=== PATIENT | male | born 1960 | race Caucasian/White ===

== ENCOUNTER → 2018-07-09 | Outpatient (CLI) | payer OTHER ==
--- NOTE | 2018-07-10 07:30 | CT ---
EXAMINATION TYPE: CT sinus wo con DATE OF EXAM: 07/09/2018 COMPARISON: NONE HISTORY: chronic sinusitis per order. Facial pain and headaches for [address] DLP: 613 mGycm. Automated Exposure Control for Dose Reduction was Utilized. TECHNIQUE: CT scan of the sinuses is performed without contrast, axial images are obtained, coronal r eformatted images are also reviewed. FINDINGS: Moderate mucosal thickening involving left maxillary sinus is present with suspected small dependent air-fluid level. Right maxillary sinus shows moderate mucosal thickening inferiorly. Dominant right sphenoid sinus shows mild to moderate anterior mucosal thickening. There is nearly com pletely opacified left sphenoid sinus. There is near complete opacification of ethmoid sinuses bilate rally more prominent anteriorly. Mild mucosal thickening inferiorly posteriorly right frontal sinus w ith patchy fluid is present . There is more patchy fluid signal posterior inferior left frontal sinus with mild mucosal thickening. The ostiomeatal complex is blocked bilaterally on the coronal images. Visualized portion of mastoid air cells show no abnormal opacification. The globes are intact bilate rally. Visualized portion of brain parenchyma is unremarkable. IMPRESSION: Acute on chronic paranasal sinus disease as detailed above with blockage of bilateral ost iomeatal complexes.
== END ==
LOC: RADCTMAIN 16:08
PROVIDERS: ATTEND Otolaryngology
DX: J01.80 Other acute sinusitis (principal)
CPT/HCPCS: 70486

== ENCOUNTER 2018-08-14 07:45 | Day surgery (SDC) | payer OTHER ==
[2018-08-12 15:27] VITALS: BMI 31.0
[~2018-08-14 07:45] MED LIST: DEXAMETHASONE SOD PHOSPHATE 10 MG/ML 1 ML VIAL IV ONE; DEXAMETHASONE SOD PHOSPHATE 4 MG/ML 1 ML VIAL IV ONE; FAMOTIDINE 20 MG/2 ML VIAL IV ONE; HYDROmorphone 0.5 MG/0.5 ML SYRINGE IVP PRN; LACTATED RINGERS 1,000 ML IV SCH; LIDOCAINE 1% 20 ML VIAL (10MG/ML) FOR IV START INTRADERMA PRN; MIDAZOLAM (PF) 2 MG/2 ML VIAL IV PRN; ONDANSETRON 4 MG/2 ML VIAL IVP ONE; OXYMETAZOLINE 0.05% NASL SPRAY 1 SPRAY BOTTLE NASAL ONE; ceFAZolin 1,000 MG in DEXTROSE/WATER 1 50ML.BAG IV ONE; fentaNYL (PF) 50 MCG/ML 2 ML AMP IV PRN
[2018-08-14] MEDS ORDERED: SCOPOLAMINE 1.5MG/72HR PATCH TRANSDERM ONE (10:13)
[2018-08-14] MEDS ORDERED: DEXAMETHASONE SOD PHOS (MDV) 100 MG/10 ML VIAL ONE (10:25)
[2018-08-14] MEDS ORDERED: LIDOCAINE 1% INJ 10MG/ML (20 ML MDV) ONE (10:25)
[2018-08-14] MEDS ORDERED: MIDAZOLAM 2 MG/2 ML VIAL ONE (10:25)
[2018-08-14] MEDS ORDERED: SUCCINYLCHOLINE CHLORIDE 100 MG/5 ML SYR IV ONE (10:25)
[2018-08-14] MEDS ORDERED: PROPOFOL 10 MG/ML 20 ML VIAL IV ONE (10:25)
[2018-08-14] MEDS ORDERED: fentaNYL (PF) 50 MCG/ML 2 ML AMP ONE (10:25)
[2018-08-14] MEDS ORDERED: LIDOCAINE 1%-EPI 1:100,000 20 ML VIAL SQ ONE (10:59)
[2018-08-14] MEDS ORDERED: FLUORESCEIN STRIPS 1 MG STRIP MISCELLANE ONE (11:00)
[2018-08-14] MEDS ORDERED: BUPIVACAIN-EPI 0.5%-1:200,000 30 ML VIAL SQ ONE (11:00)
[2018-08-14] MEDS ORDERED: EPINEPHrine 1 MG/ML (MDV) 30 ML VIAL TOPICAL ONE ×2 (11:00)
[2018-08-14 12:22] VITALS: TEMP 97.2
--- NOTE | 2018-08-14 12:35 | P.OP ---
Date of Procedure: 08/14/18 Preoperative Diagnosis: Chronic Pansinusitis with polyposis Deviated nasal septum Hypertrophy of inferior turbinate Anesthesia: JENIFERA Surgeon: Geoff Dove Estimated Blood Loss (ml): 20 Pathology: other (sinonasal) Condition: stable Disposition: PACU Indications for Procedure: This patient presented to the office with constant sinus symptoms for many years. He has total anosmia congestion discolored drainage etc. etc. Antibiotics do not help nasal steroids do not help he has failed all medical therapies. CAT scan shows chronic pansinusitis with sinonasal polyposis. All risks, benefits, and alternative therapies regarding this procedure were discussed. Consent was obtained and all questions were answered. Operative Findings: Massive sinonasal polyposis with a deviated nasal septum and large obstructive inferior turbinates Description of Procedure: This patient was taken to the operative room and placed in the supine position. A general inhalation anesthetic was administered to the patient by the department of anesthesia with a functioning IV line in place. The patient was monitored throughout the entire case by the department of anesthesia. The eyes were taped shut for protection. The patient was placed in a slight reverse Trendelenburg position. The patient had previously utilize Afrin nasal spray preoperatively. The nose was evaluated and the septum lateral nasal wall and inferior turbinates were injected with lidocaine 1% with epinephrine 1 100,000 bilaterally. Approximately 10 minutes were allowed wait for full vasoconstrictive effects to take place. At this point a caudal incision was made over the caudal portion of the left septum down to the mucoperichondrium. A mucoperichondrial flap was elevated on the left side and dissection was carried with use of tunnels posteriorly. We then made a crossover incision through the cartilage to the contralateral side and for the mucoperichondrial flap development was performed to the extent of visualization on the contralateral side. After the cartilage was freed with use of several crosshatching incisions and removal of some redundant strips of septal cartilage, the septum was straightened and placed back in the midline. The septum was sutured fixated to the ovarian groove. Excellent straightening occurred and the septum was visibly straight. Incision was closed with a 40 rapid Vicryl. We utilized a running nonlocking fashion for closure of the incision. A quilting stitch was used to reapproximate the septal flaps with use of a 40 rapid Vicryl. We then entered the nose with a 0 and 30 Barth henrik endoscope. Previous to this we did inject the lateral nasal wall and middle turbinate and uncinate process with lidocaine 1% with epinephrine 1 100,000. Approximately 10 minutes were allowed wait for full vasoconstrictive effects to take place. Intranasal polyps were noted. They were noted bilaterally. The intranasal polyps were removed with use of a microdebrider. With use of a microdebrider and a pediatric backbiter, we took down the uncinate process bilaterally. We then opened the maxillary sinuses bilaterally. We utilized a microdebrider for this and entered the maxillary sinuses and removed diseased tissue and polypoid tissue. This was done bilaterally. After the maxillary sinuses were opened and the diseased tissue and polyps were removed we entered the ethmoid bulla and with use of a microdebrider and up-biting carolina and Frederick, we remove the anterior septations and remove diseased tissue from the anterior ethmoids with direct visualization. We then followed the fovea frontalis through the basal lamella and into the posterior ethmoid air cells and did a total ethmoidectomy with removal of polypoid material. Once the ethmoids cells were all taken down we then entered the sphenoid sinus medially and inferiorly underneath the inferior attachment of the superior turbinate. The sphenoid sinus was opened entered and diseased tissue and polyps were removed bilaterally. This was done with a microdebrider and Blakesosvaldo. We then entered the frontal sinuses with a giraffe and up-biting Blameenaley entered on the agar nasi cells. We open the frontal sinuses and removed sinus tissue and polypoid tissue that was diseased. We explored the frontal sinuses bilaterally. To summarize all sinuses were open all sinuses were explored and we remove diseased tissue and polyps from the sphenoid maxillary and frontal sinuses. Polyps were removed from the nose. Ethmoid sinuses were opened totally. Xerogel/ Propel/Nasal pore was inserted and minimal bleeding was encountered. We reinspected the skull base there is no signs of any orbital penetration or signs of any intracranial penetration. The sugical site was reinspected after the nasal pore was placed and no bleeding was seen. Attention was then paid to the inferior turbinates. The bilateral inferior turbinates were hypertrophic and obstructive. We entered the anterior portion of the inferior turbinates with use of a microdebrider. We remove bone and submucosal elements with use of a microdebrider bilaterally. The inferior turbinates underwent a submucosal resection with removal of submucosal tissue and bone. We obtained a much better and normal in size for breathing. The inferior turbinates were then outfractured and compressed with a Compendium nasal elevator. Excellent airway was obtained and was symmetric bilaterally. No bleeding was encountered. Intranasal splints were inserted and fixated at the end of the case. We utilized Marion nasal splints. There will be removed and the patient returns to the office.
[2018-08-14] MEDS ORDERED: ACETAMINOPHEN TAB 500 MG TAB PO ONE (13:44)
[2018-08-14 14:22] VITALS: BP 134/84; PULSE 57; RESP 20
== END 2018-08-14 15:05 | disposition home or self-care (01) ==
LOC: OR 07:45
PROVIDERS: ATTEND Otolaryngology
DX: J32.4 Chronic pansinusitis (principal); J34.2 Deviated nasal septum; J34.3 Hypertrophy of nasal turbinates; J33.8 Other polyp of sinus; R43.0 Anosmia; K21.9 Gastro-esophageal reflux disease without esophagitis; Z79.899 Other long term (current) drug therapy; Z91.09 Other allergy status, other than to drugs and biological substances
CPT/HCPCS: 88305; 88300; 30520; 30140; 31267; 31253; 31259; C2625 ×2; J0171; J2250; J1100 ×2; J2405; J2001; J3010; J0330; J2704

== ENCOUNTER 2018-08-15 10:23 | Emergency (ER) | payer OTHER ==
[2018-08-15 10:30] VITALS: TEMP 98
[2018-08-15 11:06] VITALS: RESP 16
[2018-08-15] MEDS ORDERED: LORazepam 2 MG/ML INJ IV STA (11:08)
--- NOTE | 2018-08-15 11:14 | ED ---
General Adult HPI - General Chief complaint: Recheck/Abnormal Lab/Rx Stated complaint: JAYE, post surgical Time Seen by Provider: 08/15/18 10:30 Source: patient, RN notes reviewed Mode of arrival: ambulatory Limitations: no limitations - History of Present Illness Initial comments: This a 57-year-old male who presents emergency Department complaining of tingling in his fingers and feet. Patient states he had surgery on his sinuses yesterday and he had a difficult time with his breathing he states he feels as though he has to sit up at all times and is quite anxious about his breathing though he is able to get a full breath. Patient denies any headache patient denies any actual numbness or weakness. Patient states she is a tingling sensation that occasionally occurs in both hands and both feet. Patient denies any lightheadedness or dizziness. Patient denies any chest pain or palpitations. Patient denies any abdominal pain. Patient denies nausea or vomiting. - Related Data Home Medications Medication Instructions Recorded Confirmed Fish Oil/Dha/Epa [Fish Oil 1,200 1 cap PO DAILY 08/12/18 08/15/18 mg Fish Oil] Omeprazole [PriLOSEC] 20 mg PO Q48H 08/12/18 08/15/18 Acetaminophen [Tylenol] 1,000 mg PO Q4-6H PRN 08/15/18 08/15/18 Amoxicillin/Potassium Clav 1 tab PO Q12HR 08/15/18 08/15/18 [Augmentin 875-125 Tablet] predniSONE See Taper PO DIRECTED 08/15/18 08/15/18 Previous Rx's Medication Instructions Recorded Meloxicam [Mobic] 15 mg PO DAILY #10 tab 08/14/18 Allergies Allergy/AdvReac Type Severity Reaction Status Date / Time bee stings Allergy Anaphylaxis Uncoded 08/15/18 10:30 Review of Systems ROS Statement: Those systems with pertinent positive or pertinent negative responses have been documented in the HPI. ROS Other: All systems not noted in ROS Statement are negative. Past Medical History Past Medical History: GERD/Reflux Additional Past Medical History / Comment(s): deviated septum,sinus polyps History of Any Multi-Drug Resistant Organisms: None Reported Past Surgical History: Back Surgery Additional Past Surgical History / Comment(s): ORIF rt ankle-later removed Past Anesthesia/Blood Transfusion Reactions: Postoperative Nausea & Vomiting ( PONV) Past Psychological History: No Psychological Hx Reported Smoking Status: Never smoker - Past Family History Mother Additional Family Medical History / Comment(s): pulmonary fibrosis General Exam - General Exam Comments Initial Comments: GENERAL: Patient is well-developed and well-nourished. Patient is nontoxic and well- hydrated and is in mild distress and moderate anxiety ENT: Neck is soft and supple. No significant lymphadenopathy is noted. Oropharynx is clear. Moist mucous membranes. Neck has full range of motion without eliciting any pain. Patient has packing in his nose but I did not explore that area. EYES: The sclera were anicteric and conjunctiva were pink and moist. Extraocular movements were intact and pupils were equal round and reactive to light. Eyelids were unremarkable. PULMONARY: Unlabored respirations. Good breath sounds bilaterally. No audible rales rhonchi or wheezing was noted. CARDIOVASCULAR: There is a regular rate and rhythm without any murmurs gallops or rubs. SKIN: Skin is clear with no lesions or rashes and otherwise unremarkable. NEUROLOGIC: Patient is alert and oriented x3. Cranial nerves II through XII are grossly intact. Motor and sensory are also intact. Normal speech, volume and content. Symmetrical smile. MUSCULOSKELETAL: Normal extremities with adequate strength and full range of motion. No lower extremity swelling or edema. No calf tenderness. LYMPHATICS: No significant lymphadenopathy is noted PSYCHIATRIC: Moderate anxiety Limitations: no limitations Course Vital Signs 08/15/18 08/15/18 08/15/18 10:27 11:03 11:30 Temperature 98 F Pulse Rate 69 Respiratory 22 16 Rate Blood Pressure 172/97 143/91 O2 Sat by Pulse 99 96 Oximetry Medical Decision Making - Medical Decision Making EKG shows normal sinus rhythm at 68 bpm MA interval 160 QRS is 88 QT interval 392 QTC is 416. Patient's EKG shows no ST segment elevation or depression. I spoke with Dr. Dove he thought that the patient may be having some side effects to the steroids or possibly some anxiety. I went back and reevaluated the patient after he had Ativan and he was feeling considerably better and he was symptom-free at that time. I gave the patient instructions to stop the steroids and start some Benadryl per Dr. Dove 's instructions and I gave them Dr. Dove's phone number and he is to be contacted if the patient is Having further problems. - Lab Data Result diagrams: 08/15/18 10:50 08/15/18 10:50 Lab Results 08/15/18 08/15/18 Range/Units 10:50 10:50 WBC 19.7 H (3.8-10.6) k/uL RBC 5.20 (4.30-5.90) m/uL Hgb 16.0 (13.0-17.5) gm/dL Hct 46.9 (39.0-53.0) % MCV 90.2 (80.0-100.0) fL MCH 30.9 (25.0-35.0) pg MCHC 34.2 (31.0-37.0) g/dL RDW 13.1 (11.5-15.5) % Plt Count 247 (150-450) k/uL Neutrophils % 89 % Lymphocytes % 7 % Monocytes % 4 % Eosinophils % 0 % Basophils % 0 % Neutrophils # 17.5 H (1.3-7.7) k/uL Lymphocytes # 1.3 (1.0-4.8) k/uL Monocytes # 0.8 (0-1.0) k/uL Eosinophils # 0.1 (0-0.7) k/uL Basophils # 0.0 (0-0.2) k/uL Sodium 138 (137-145) mmol/L Potassium 4.5 (3.5-5.1) mmol/L Chloride 103 (98-107) mmol/L Carbon Dioxide 22 (22-30) mmol/L Anion Gap 13 mmol/L BUN 16 (9-20) mg/dL Creatinine 0.86 (0.66-1.25) mg/dL Est GFR (CKD-EPI)AfAm >90 (>60 ml/min/1.73 sqM) Est GFR (CKD-EPI)NonAf >90 (>60 ml/min/1.73 sqM) Glucose 127 H (74-99) mg/dL Calcium 10.4 H (8.4-10.2) mg/dL Total Bilirubin 0.8 (0.2-1.3) mg/dL AST 24 (17-59) U/L ALT 32 (21-72) U/L Alkaline Phosphatase 67 (38-126) U/L Total Protein 9.4 H (6.3-8.2) g/dL Albumin 5.1 H (3.5-5.0) g/dL Disposition Clinical Impression: Anxiety Disposition: HOME SELF-CARE Additional Instructions: Patient states that the steroids and take Benadryl every 6 hours. Is patient prescribed a controlled substance at d/c from ED?: No Referrals: Luanne Oliveira MD [Primary Care Provider] - 1-2 days Time of Disposition: 12:41
[2018-08-15 11:36] VITALS: BP 143/91
[2018-08-15 11:39] LABS: Basophils % (A) 0 %; Eosinophils # (A) 0.1 k/uL (0-0.7); Eosinophils % (A) 0 %; HCT 46.9 % (39.0-53.0); Lymphocytes # (A) 1.3 k/uL (1.0-4.8); Lymphocytes % (A) 7 %; MCH 30.9 pg (25.0-35.0); MCHC 34.2 g/dL (31.0-37.0); MCV 90.2 fL (80.0-100.0); Mean Platelet Volume 7.4; Monocytes # (A) 0.8 k/uL (0-1.0); Monocytes % (A) 4 %; Neutrophils # (A) 17.5 k/uL (1.3-7.7); Neutrophils % (A) 89 %; Platelet Count 247 k/uL (150-450); RDW 13.1 % (11.5-15.5); WBC 19.7 k/uL (3.8-10.6)
[2018-08-15 11:57] LABS: ALT 32 U/L (21-72); AST 24 U/L (17-59); Albumin 5.1 g/dL (3.5-5.0); Alkaline Phosphatase 67 U/L (38-126); Anion Gap 13 mmol/L; Blood Urea Nitrogen 16 mg/dL (9-20); Calcium 10.4 mg/dL (8.4-10.2); Carbon Dioxide 22 mmol/L (22-30); Chloride 103 mmol/L (98-107); Glucose 127 mg/dL (74-99); Sodium 138 mmol/L (137-145); Total Bilirubin 0.8 mg/dL (0.2-1.3); Total Protein 9.4 g/dL (6.3-8.2)
[2018-08-15 12:00] LABS: Potassium 4.5 mmol/L (3.5-5.1)
[2018-08-15 12:50] VITALS: PULSE 71
== END 2018-08-15 12:59 | disposition home or self-care (01) ==
LOC: EC 10:23
DX: F41.9 Anxiety disorder, unspecified (principal); R20.2 Paresthesia of skin; R06.09 Other forms of dyspnea; K21.9 Gastro-esophageal reflux disease without esophagitis; Z79.899 Other long term (current) drug therapy; Z79.52 Long term (current) use of systemic steroids; Z91.030 Bee allergy status
CPT/HCPCS: 36415; 80053; 85025; 96374; 99285

== ENCOUNTER → 2018-10-13 | Outpatient (CLI) | payer OTHER ==
--- NOTE | 2018-10-13 13:18 | XR ---
EXAMINATION TYPE: XR chest 2V DATE OF EXAM: 10/13/2018 COMPARISON: NONE TECHNIQUE: PA and lateral views submitted. HISTORY: Shortness of breath FINDINGS: The lungs are clear and there is no pneumothorax, pleural effusion, or focal pneumonia. No overt fa ilure. Mild ectasia of the aorta. IMPRESSION: 1. No acute process.
== END | disposition home or self-care (01) ==
LOC: RADXRMAIN 13:01
PROVIDERS: ATTEND Internal Medicine
DX: R06.02 Shortness of breath (principal)
CPT/HCPCS: 71046

== ENCOUNTER → 2020-06-09 | Outpatient (CLI) | payer BC | END | disposition home or self-care (01) | LOC: LABPAT 13:09 | PROVIDERS: ATTEND Student in an Organized Health Care Education/Training Program | DX: Z01.818 Encounter for other preprocedural examination (principal); Z20.828 Contact with and (suspected) exposure to other viral communicable diseases ==

== ENCOUNTER 2020-06-16 06:56 | Day surgery (SDC) | payer BC, OTHER ==
[2020-06-14 15:38] VITALS: BMI 30.8
[~2020-06-16 06:56] MED LIST changes: -DEXAMETHASONE SOD PHOSPHATE 10 MG/ML 1 ML VIAL IV ONE; -DEXAMETHASONE SOD PHOSPHATE 4 MG/ML 1 ML VIAL IV ONE; -FAMOTIDINE 20 MG/2 ML VIAL IV ONE; -HYDROmorphone 0.5 MG/0.5 ML SYRINGE IVP PRN; +LIDOCAINE 1% (10MG/ML) FOR IV START INTRADERMA PRN; -LIDOCAINE 1% 20 ML VIAL (10MG/ML) FOR IV START INTRADERMA PRN; -MIDAZOLAM (PF) 2 MG/2 ML VIAL IV PRN; -ONDANSETRON 4 MG/2 ML VIAL IVP ONE; -OXYMETAZOLINE 0.05% NASL SPRAY 1 SPRAY BOTTLE NASAL ONE; -ceFAZolin 1,000 MG in DEXTROSE/WATER 1 50ML.BAG IV ONE; -fentaNYL (PF) 50 MCG/ML 2 ML AMP IV PRN
[2020-06-16 07:15] VITALS: TEMP 97.8
[2020-06-16] MEDS ORDERED: LACTATED RINGERS 1,000 ML IV ONE (07:16)
[2020-06-16 07:24] LABS: Glucose,Whole Blood 85 mg/dL (75-99)
[2020-06-16] MEDS ORDERED: LIDOCAINE 1% INJ 10MG/ML (20 ML MDV) ONE (08:16)
[2020-06-16] MEDS ORDERED: PROPOFOL 10 MG/ML 20 ML VIAL IV ONE (08:16)
--- NOTE | 2020-06-16 08:33 | P.OP ---
Date of Procedure: 06/16/20 Preoperative Diagnosis: Screening colonoscopy Postoperative Diagnosis: Diverticulosis Anesthesia: MAC Surgeon: Angel Johnson Estimated Blood Loss (ml): 0 Condition: stable Disposition: same day Description of Procedure: Patient is brought Endo suite placed in left lateral decubitus position underwent sedation per department of anesthesia rectal exam was performed no gross abnormalities were noted scope was passed from the rectum to the cecum with ease and slowly withdrawn being sure to visualize all moe of the colon on the way out there sigmoid diverticuli noted. There is no other gross abnormalities noted patient tolerated the procedure well there are no apparent complications. Repeat screening colonoscopy in 10 years
[2020-06-16 08:39] VITALS: RESP 16
[2020-06-16 08:54] VITALS: BP 128/83; PULSE 54
== END 2020-06-16 09:11 | disposition home or self-care (01) ==
LOC: ORWHC2ENDO 06:56
PROVIDERS: ATTEND Student in an Organized Health Care Education/Training Program
DX: Z12.11 Encounter for screening for malignant neoplasm of colon (principal); K57.30 Diverticulosis of large intestine without perforation or abscess without bleeding; I10 Essential (primary) hypertension; J44.9 Chronic obstructive pulmonary disease, unspecified; E11.9 Type 2 diabetes mellitus without complications; E07.9 Disorder of thyroid, unspecified; M10.9 Gout, unspecified; Z79.899 Other long term (current) drug therapy
CPT/HCPCS: G0121; J2001; J2704; 45378

== ENCOUNTER → 2021-04-25 | Outpatient (CLI) | payer BC ==
--- NOTE | 2021-04-25 12:16 | XR ---
KUB HISTORY: N20.0 Frontal KUB and T2 images Lung bases are clear. There is no evident bowel obstruction or pneumoperitoneum. Oval density in the right lower quadrant may be due to tablet. Degenerative disc changes are present in the visualized sp ine. There is sclerosis of the sacroiliac joints. Bowel gas may obscure underlying detail. IMPRESSION: Nonspecific findings as described.
== END | disposition home or self-care (01) ==
LOC: RADXRMAIN 09:43
PROVIDERS: ATTEND Urology
DX: N20.0 Calculus of kidney (principal)
CPT/HCPCS: 74018